=== PATIENT | male | born 1975 | race Caucasian/White ===

== ENCOUNTER 2024-12-05 06:45 | Day surgery (SDC) | payer OTHER ==
[2024-12-05] MEDS: Lactated Ringers 1,000 ML IV SCH (06:20)
[2024-12-05] MEDS: Clindamycin Phosphate in D5W 900 MG in Premix Bag 1 BAG IV ONE (06:27)
[~2024-12-05 06:45] MED LIST: Dexamethasone 4 MG/ML 5 ML MDV ONE; Ketorolac 30 MG/ML SDV ONE; Ondansetron 4 MG/2 ML SDV ONE; Propofol 200 MG/20 ML SDV ONE; Sodium Chloride 0.9% 10 ML Syringe FLUSH PRN; Sodium Chloride 0.9% 10 ML Syringe FLUSH SCH; dexmedeTOMIDine HCl 200 MCG/2 ML SDV ONE; fentaNYL 100 MCG/2 ML SDV ONE; propofoL 500 MG/50 ML 50 ML ONE
[2024-12-05] MEDS ORDERED: fentaNYL 100 MCG/2 ML SDV ONE (07:35)
[2024-12-05] MEDS: EPINEPHrine 1 MG/ML SDV ONE (07:46)
[2024-12-05] MEDS ORDERED: Propofol 200 MG/20 ML SDV ONE (07:53)
[2024-12-05] MEDS ORDERED: Ondansetron 4 MG/2 ML SDV IVPUSH PRN (08:20)
[2024-12-05] MEDS ORDERED: fentaNYL 100 MCG/2 ML SDV IVPUSH PRN (08:20)
[2024-12-05 09:40] VITALS: BP 114/64; PULSE 58
== END 2024-12-05 09:37 | disposition home or self-care (01) ==
LOC: JD.SDS 06:45
PROVIDERS: ATTEND Orthopaedic Surgery
DX: S83.241A Other tear of medial meniscus, current injury, right knee, initial encounter (principal); K21.9 Gastro-esophageal reflux disease without esophagitis; G47.33 Obstructive sleep apnea (adult) (pediatric); E78.00 Pure hypercholesterolemia, unspecified; Z88.0 Allergy status to penicillin; Z88.8 Allergy status to other drugs, medicaments and biological substances; Z79.899 Other long term (current) drug therapy; X58.XXXA Exposure to other specified factors, initial encounter
CPT/HCPCS: 29875; J0169; J0665; J0736; J1100; J1885; J2003; J2405; J2704; J3010; J7120; 01400